=== PATIENT | female | born 1990 | race Caucasian/White ===

== ENCOUNTER 2019-12-09 16:13 | Emergency (ER) | payer OTHER, SELFPAY ==
[2019-12-09 16:14] VITALS: BP 108/77; PULSE 71; RESP 20; TEMP 36.9; O2SAT 100; BMI 20.5
--- NOTE | 2019-12-09 16:56 | HMH.EDUTC ---
[facility] [place] Clinical Impression: Cornea abrasion Qualifiers: Encounter type: initial encounter Laterality: right Qualified Code(s): S05.01XA - Injury of conjunctiva and corneal abrasion without foreign body, right eye, initial encounter Disposition: Home, Self-Care Condition on Discharge: Good Instructions: Corneal Abrasion, DI for Corneal Abrasion Additional Instructions: Make sure to call [facility] in the morning to follow up tomorrow in the office, inform them you was seen in [facility] and spoke with Dr Lau and he wanted to see you tomorrow in the office *Keep eye patched and do not remove Return if needed Straight to ER if any life threatening symptoms Referrals: PCP,No [Primary Care Provider] - As needed [facility] Dr Lau [Other] Time of Disposition: 17:06 Medical Decision Making - Savage Inquiry Pt receiving controlled substance: No Savage was queried for this patient: No Vital Signs: 12/09/19 16:14 Temperature 98.4 F Temperature Source Oral Pulse Rate [Radial] 71 Respiratory Rate 20 Blood Pressure [Right Arm] 108/77 L Blood Pressure Mean [Right Arm] 87 Blood Pressure Source [Right Arm] Automatic Cuff Blood Pressure Position [Right Arm] Sitting 02 Sat by Pulse Oximetry 100 Oxygen Delivery Method Room Air - Physician Consults Physician Consulted: Sid Time: 16:55 Reason -: Opthalmology Eval/Care Comment/Response: Spoke with Dr Lau and informed him of observing what appeared to be a scratch across cornea without use of allison lamp and stain, he advised to place erythromycin ointment in eye and patch shut and have her follow up in his office first thing in the morning for further evaluation and treatment [facility] [place] - General Stated complaint: R eye pain Time Seen by Provider: 12/09/19 16:25 Mode of Arrival: Ambulatory Source of Information: Patient Limitations: No Limitations Description of Symptoms (Recalled from Triage Doc. by RN): Thinks she may have scratched her right eye. Unable to open it. States she flushed it a bunch of times over an hour with no relief. HEENT Symptoms (Recalled from RN notes): Yes Resp Symptoms (Recalled from RN notes): No Skin Symptoms (Recalled from RN notes): No MS Symptoms (Recalled from RN notes): No Functional Status (Recalled from RN notes): wnl - History of Present Illness Provider Complaint: Patient states that she woke up in the middle of the night and felt like there was something in her right eye and she rubbed it and immediately had pain States that then it stopped hurting and she went back to sleep States that when she woke up she felt like her eye was scratched or there was something in there so she flushed it several times but nothing come out States that she looked at it in the mirror and noticed what looked like a scratch across her eye States that since it hurts when she tries to open it so she came in - Related Data Allergies Allergy/AdvReac Type Severity Reaction Status Date / Time No Known Allergies Allergy Verified 12/09/19 16:30 - Worker's Comp Is this a Worker's Comp case?: No [facility] History - Hepatitis A Screen Drug use history?: No High risk sexual behaviors?: No History of sexually transmitted infection?: No Currently employed?: No Childcare worker?: No Do you have indoor plumbing?: Yes Do you have electricity?: Yes Attestation statement:: This patient has been screened for Hepatitis A risk factors. I have reviewed the patient's past medical history: Yes - Social History Alcohol Intake: never Occupational Status: other ROS Obtained: Yes All systems reviewed & no additional complaints, Yes Systems reviewed as appropriate & no additional complaints - Constitutional Constitutional: Reports system reviewed and no additional complaints, except as docu - Eyes Eyes: Reports eye pain, Reports other (Thinks she scratched her right eye Denies known injury) Physical Exam - General General appearan
[2019-12-09 17:04] VITALS: BP 108/77; PULSE 71; RESP 20; TEMP 36.9; O2SAT 100
== END 2019-12-09 17:21 | disposition home or self-care (01) ==
PROVIDERS: Emergency Provider Nurse Practitioner
DX: S05.01XA Injury of conjunctiva and corneal abrasion without foreign body, right eye, initial encounter (principal)
CPT/HCPCS: 99201